=== PATIENT | female | born 1935 | race Caucasian/White ===

== ENCOUNTER 2017-10-04 17:33 | Inpatient (IN) | payer MEDICARE ==
[2017-10-04] MEDS ORDERED: Cefepime 2 GM/10 ML SYR ONE (18:20)
[2017-10-04 19:13] LABS: Bilirubin Negative (Negative); Blood, Urine Negative (Negative); Glucose, Urine (Dipstick) Negative (Negative); Ketone, Urine Negative (Negative); Nitrite Negative (Negative); Protein, Urine (Dipstick) Negative (Neg-Trace); Urobilinogen 0.2 mg/dL (0.2-1.0)
[2017-10-04] MEDS ORDERED: Vancomycin HCl 750 MG in Sodium Chloride 0.9% 250 ML 250 ML IVPB SCH (19:30)
[2017-10-04] MEDS ORDERED: Acetaminophen 325 MG TAB PO PRN ×2 (21:48→22:09)
[2017-10-04] MEDS ORDERED: Ondansetron HCl/PF 4 MG/2 ML Vial IVP PRN (21:48)
[2017-10-04] MEDS ORDERED: Ondansetron ODT 4 MG TAB SL PRN (21:48)
[2017-10-04] MEDS ORDERED: Nitroglycerin 0.4 MG TAB (25 Tab Bottle) PO PRN (22:09)
[2017-10-04] MEDS ORDERED: Ondansetron ODT 4 MG TAB PO PRN (22:09)
[2017-10-04] MEDS ORDERED: Calcium Carbonate 500 MG ChewTAB PO PRN (22:09)
[2017-10-04] MEDS ORDERED: Mag-Al 1200 mg/1200 mg/30 ML UDCUP PO PRN (22:09)
[2017-10-04] MEDS ORDERED: Cefepime 2 GM in Sodium Chloride 0.9% 100 ML IVPB SCH (22:15)
--- NOTE | 2017-10-04 22:54 | HP ---
DATE OF ADMISSION: 10/04/2017 PRIMARY CARE PHYSICIAN: Dr. Karena Hanna. PRIMARY ONCOLOGIST: Emory Campos M.D. CHIEF COMPLAINT: Fever. HISTORY OF PRESENT ILLNESS: The patient is an 81-year-old female with ovarian cancer on chemotherapy , who presented to [facility] with fever. Over the last 24 hours, the patient developed fever along with chills. Her maximum temperature was 1 02 to 102.9. She also has on and off diarrhea over the last 2 weeks that has somewhat slowed down. Last episode of diarrhea was this afternoon. Her last chemotherapy was earlier this week. She denie s any sick contacts. No cough, shortness of breath, wheezing, skin rash reported. She also had abdo alfredo discomfort that was more or less generalized crampy. She felt generally weak and fatigued. In the emergency room, her initial vital signs showed temperature 102, respiration of 18, pulse rate of 105, blood pressure 99/54 with O2 saturation 98% on room air. Her workup in the emergency room wa s consistent with WBC of 0.3 with 10% neutrophil without any bandemia. She received IV fluids along with ibuprofen and was transferred to this facility. Per ER record, there was questionable atrial fi brillation. I am unable to find any EKG in the chart. At this facility, she received vancomycin and cefepime. PAST MEDICAL HISTORY: 1. Ovarian cancer diagnosed in 2013. 2. Hypertension. 3. Gastroesophageal reflux disease. 4. Hyperlipidemia. 5. Hypothyroidism. PAST SURGICAL HISTORY: Hysterectomy and bilateral oophorectomy. ALLERGIES: The patient is allergic to LATEX. CURRENT HOME MEDICATIONS: The patient is unable to recall any of her home medications. Family to br ing accurate list of medications. SOCIAL HISTORY: The patient currently lives at home. No smoking, alcohol or drug use. FAMILY HISTORY: Negative for premature coronary artery disease. CODE STATUS: FULL CODE. Surrogate decision maker is her . PHYSICAL EXAMINATION: VITAL SIGNS: As discussed above. GENERAL: An 81-year-old female with chills. Feels generally weak and fatigued. HEENT: Head atraumatic, normocephalic. Sclerae anicteric. Moist mucous membrane, no oral lesion. NECK: Supple, no JVD appreciated. No carotid bruit. LUNGS: Clear to auscultation bilaterally. HEART: S1, S2 present. Regular rate and rhythm. No murmurs, rubs or gallops appreciated. ABDOMEN: Soft, mild generalized tenderness. No rebound, guarding, no costovertebral angle tendernes s. EXTREMITIES: No edema or calf tenderness. NEUROLOGIC: Grossly nonfocal, moves all four extremities. PSYCHIATRY: Alert, awake, oriented x3. SKIN: Warm and dry. LYMPH NODES: No palpable lymph nodes in the neck. PERIPHERAL VASCULAR: Radial pulses palpable bilaterally. MUSCULOSKELETAL: No joint swelling or tenderness. LABORATORY DATA AND X-RAY FINDINGS: As discussed above. Platelet was 324 with H and H of 8.8 and 25 .7. Chemistries showed sodium 130, potassium 3.2, chloride 93, bicarbonate 21, BUN 29, creatinine 1. 21. Urinalysis was negative for wbc, bacteria. Blood cultures have been sent from the emergency raghav . There was no chest x-ray or EKG done in the emergency room. IMPRESSION: 1. Neutropenic fever. 2. Neutropenia secondary to chemotherapy. 3. Nausea, vomiting, diarrhea, rule out infectious etiology. 4. Hypertension. 5. Hypokalemia. 6. Dehydration. 7. Anemia, probably chronic. 8. Hyponatremia. 9. Chronic kidney disease stage 3. 10. Mild protein calorie malnutrition. The patient will be monitored on the medical floor. We will continue empiric antibiotics. Add Flagy l. She received one dose of vancomycin. We will hold further vancomycin dosing for now. We will co nfirm other home medications. We will also add stool workup. Resume home medications once confirmed . We will consult Oncology Service. Plan of care was discussed with the patient in detail, she stated understanding.
[2017-10-04] MEDS: NS 0.9% w/ 20 MEQ KCL 1,000 ML/1,000 ML BAG IV SCH (23:32)
[2017-10-04] MEDS: metroNIDAZOLE 500 MG in Premix Bag 1 BAG IVPB SCH (23:32)
[2017-10-05] MEDS ORDERED: Cefepime 2 GM, Syringe 2.5 ML in Sterile Water 10 ML SLOW IVP SCH (02:00)
[2017-10-05] MEDS ORDERED: Metoprolol Tartrate 5 MG/5 ML VIAL IVP PRN (02:22)
[2017-10-05] MEDS ORDERED: Digoxin 0.5 MG/2 ML AMP SLOW IVP SCH ×2 (02:30→23:48)
[2017-10-05 06:02] LABS: Anion Gap 13 mmol/L (10-20); BUN (Urea Nitrogen) 23 mg/dL (9.8-20.1); Calc. Creatinine Clearance 33 mL/min (70-130); Calcium 8.1 mg/dL (7.8-10.44); Carbon Dioxide 21 mmol/L (23-31); Chloride 102 mmol/L (98-107); Estimated GFR-MDRD 50; Phosphorus 3.3 mg/dL (2.3-4.7)
[2017-10-05 06:07] LABS: White Blood Cell (WBC) Count 0.6 thou/uL (4.8-10.8)
[2017-10-05 07:17] LABS: Hematocrit 23.6 % (36.0-47.0); Mean Platelet Volume 6.8 fL (7.4-10.4); Red Blood Cell (RBC) Count 2.72 mill/uL (4.20-5.40)
[2017-10-05 07:54] LABS: Band 24 % (5-11); Bite Cells SLIGHT = 2-5 cells (100X) (0-1/hpf); Neutrophil 24 % (42-75); Polychromasia SLIGHT = 2-3 cells (100X) (0-2/hpf); Reactive Lymphocytes 8 % (0-10)
[2017-10-05] MEDS: metroNIDAZOLE 500 MG in Premix Bag 1 BAG IVPB SCH ×2 (08:56→16:33)
[2017-10-05] MEDS: NS 0.9% w/ 20 MEQ KCL 1,000 ML/1,000 ML BAG IV SCH ×3 (08:56→20:33)
[2017-10-05] MEDS: Famotidine 20 MG TAB PO SCH ×2 (08:56→22:18)
[2017-10-05] MEDS ORDERED: Magnesium Sulfate 4 GM in Sodium Chloride 0.9% 250 ML 250 ML IVPB SCH (09:00)
[2017-10-05] MEDS ORDERED: Potassium Chloride 20 MEQ TAB PO SCH ×2 (09:00→17:00)
--- NOTE | 2017-10-05 09:04 | RAD ---
AP VIEW OF CHEST: Date: 10/05/17 INDICATION: Neutropenic fever. FINDINGS: There is a left-sided pleural parenchymal opacity suspicious for left-sided pleural effusion with eit her atelectasis or pneumonia. The right lung is clear. There is mild cardiomegaly that is stable to c omparison from 07/12/05. No acute osseous abnormality is evident. IMPRESSION: Left-sided pleural parenchymal opacity possibly reflecting pleural effusion with atelectasis and/or p neumonia. A 2 view chest radiograph may be helpful for additional evaluation. POS: [facility]
[2017-10-05] MEDS ORDERED: Diphenoxylate HCl/Atropine Tablet PO PRN (10:35)
[2017-10-05] MEDS ORDERED: Loperamide HCl 2 MG CAP PO PRN (10:35)
[2017-10-05] MEDS: Cefepime 2 GM, Syringe 2.5 ML in Sterile Water 10 ML SLOW IVP SCH ×2 (10:53→20:33)
[2017-10-05] MEDS ORDERED: Aspirin 81 mg Enteric Coated Tablet PO SCH (11:00)
--- NOTE | 2017-10-05 11:16 | CON ---
DATE OF CONSULTATION: 10/05/2017 REASON FOR CONSULTATION: Ovarian cancer. HISTORY OF PRESENT ILLNESS: Ms. Sher is a pleasant 81-year-old female who was diagnosed with ovaria n cancer in 10/2013. She had received chemotherapy and maximum cytoreductive surgery and has been wa tched over the last few years. In 07/2017, CT scan showed progression. She was started on carboplat in and Taxol and received her second dose of carboplatin on 09/24. She then received Taxol on Monday 10/01. She has been struggling with diarrhea since initiation of chemotherapy. She has been taking Imodium p.r.n. Yesterday, she called to say she was feeling weak. She continued to have diarrhea a nd possible fever. She was instructed to go to the emergency room for evaluation. A CBC performed s howed a white count of 300. Her creatinine was elevated at 1.21. She was admitted for neutropenic f ever and dehydration. Her temperature was 102 in the ER. She was started on cefepime and received a dose of vancomycin and transferred to this facility for further treatment. PAST MEDICAL HISTORY: 1. Metastatic ovarian cancer. 2. Hypertension. 3. High cholesterol. 4. Esophageal reflux. 5. Hemorrhoids. PAST SURGICAL HISTORY: 1. Hysterectomy. 2. Unilateral salpingo-oophorectomy. ALLERGIES: No known drug allergies. HOME MEDICATIONS: 1. Amlodipine 10 mg daily. 2. Aspirin 81 mg daily. 3. Atorvastatin 80 mg daily. 4. Levothyroxine 88 mcg daily. 5. Lexapro 10 mg daily. 6. Prilosec 20 mg daily. 7. Triamterene and hydrochlorothiazide daily. 8. Imodium p.r.n. 9. Zofran p.r.n. 10. Compazine p.r.n. FAMILY HISTORY: No family history of ovarian or breast cancer. SOCIAL HISTORY: , has no children, lives with her spouse. No alcohol, tobacco or illicit bright g use. REVIEW OF SYSTEMS: Constitutional: Positive for fever. No chills, night sweats or weight loss. Ey es: No blurred or double vision. ENT: No pain, hoarseness, sore throat or dysphagia. Cardiovascul ar: No chest pain, palpitations or syncope. Respiratory: No shortness of breath, dyspnea on exerti on or orthopnea. Gastrointestinal: No nausea or vomiting. Positive for diarrhea. Genitourinary: No dysuria or hematuria. Musculoskeletal: No joint or back pain. Skin: No rash or pruritus. Reji tologic: No bleeding, bruising or clotting. Neurologic: Positive for weakness. No headache, numbn ess, tingling or seizure activity. Psychiatric: No anxiety or depression. PHYSICAL EXAMINATION: VITAL SIGNS: Temperature is 99.2, pulse is 86, respiratory rate 18 and BP is 120/58. She is 98% on 2 liters. GENERAL: A well-developed, well-nourished female in no acute distress. HEENT: Normocephalic and atraumatic. Pupils are equal and reactive to light. NECK: Supple. CARDIOVASCULAR: Regular rate and rhythm. Positive for murmur. LUNGS: Clear. ABDOMEN: Soft and nontender. Bowel sounds are positive. EXTREMITIES: No clubbing, cyanosis or edema. SKIN: No rash. HEMATOLOGIC: No petechia or purpura. NEUROLOGICAL: Nonfocal. She is alert, oriented and appropriate. PERTINENT LABORATORY AND X-RAYS: Current WBCs are 600, hemoglobin 7.7, hematocrit 23.6 and platelet count is 279,000. She got 24% neutrophils, 24% bands and 40% lymphocytes. Sodium is 133, potassium 3.4, chloride 102, CO2 is 21, BUN is 23 and creatinine is 1.05. Lactic acid is 2, calcium 8.1, phosp horus 3.3, magnesium 1, total bilirubin is 0.6, AST 31, ALT is 12, alkaline phosphatase is 39, serum total protein 7.1, albumin 2.9, globulin 4 and lipase 21. Blood cultures are negative. Stool cultur e was negative for C. diff or any ova parasite. Positive for elevated lactoferrin. Chest x-ray show ed left-sided pleural obesity and a possible pneumonia. ASSESSMENT: 1. Metastatic ovarian cancer, status post chemotherapy with carboplatin and Taxol. 2. Neutropenic fever. 3. Diarrhea. DISCUSSION: The patient is receiving IV fluids and antibiotics. Her creatinine has improved overnig ht. Her CBC shows an increase in bands and neutrophils. She is likely recovering from her chemother apy. She continues to have diarrhea. Her stool is negative, so I will add Imodium and Lomotil. Thi s is probably from chemotherapy. We will provide supportive care. I think she will improve over the next 24 hours and hopefully be discharged home. Thank you for the consult.
--- NOTE | 2017-10-05 12:28 | EKG ---
Test Reason : Blood Pressure : / mmHG Vent. Rate : 137 BPM Atrial Rate : 119 BPM P-R Int : 000 ms QRS Dur : 112 ms QT Int : 332 ms P-R-T Axes : 000 060 197 degrees QTc Int : 501 ms Atrial fibrillation with rapid ventricular response with premature ventricular or aberrantly conducte d complexes Low voltage QRS Cannot rule out Anteroseptal infarct (cited on or before 12-JUL-2005) Marked ST abnormality, possible inferior subendocardial injury Abnormal ECG When compared with ECG of 12-JUL-2005 10:23, Significant changes have occurred Confirmed by IVAN BELTRAN ([id number]) on 10/05/2017 12:28:40 PM Referred By: MENDEZ Confirmed By:IVAN BELTRAN
--- NOTE | 2017-10-05 13:48 | CON ---
DATE OF SERVICE: 10/05/2017 REASON FOR CONSULTATION: Atrial fibrillation with RVR. HISTORY OF PRESENT ILLNESS: Mrs. Sher is a very pleasant 81-year-old white female who comes to the hospital for fever. She has ovarian cancer and is on chemotherapy for this. She was having fevers of about 102.9, diarrhea for 2 weeks before that and she was admitted. She was found to be neutropenic. She is on IV antibiotics now. During her hospital stay, she was on telemetry, her potassium was about 3.2 and she developed atrial fibrillation. Her potassium was replaced readily and given some doses of IV digoxin and she currently is back in sinus rhythm. She denies any chest pain, tightness, or pressure. No palpitations, no syncope or presyncope. PAST MEDICAL HISTORY: 1. Ovarian cancer diagnosed in 2013. 2. Hypertension. 3. GERD. 4. Hyperlipidemia. 5. Hypothyroidism. PAST SURGICAL HISTORY: 1. Hysterectomy. 2. Bilateral oophorectomy. OUTPATIENT MEDICATIONS: 1. Vitamin D3. 2. Co-Q10. 3. Omeprazole 20 mg a day. 4. Aspirin 81 a day. 5. Levothyroxine 88 mcg a day. 6. Atorvastatin 80 mg a day. 7. Amlodipine 10 mg a day. ALLERGIES: No known drug allergies. SOCIAL HISTORY: No alcohol, tobacco or drugs. FAMILY HISTORY: Noncontributory. REVIEW OF SYSTEMS: A 12-point review of systems was done and is all negative unless stated in the history of present illness. PHYSICAL EXAMINATION: VITAL SIGNS: Temperature 98.8, pulse 81, respiratory rate 18, satting 97% on 2 liters, blood pressure 125/58. GENERAL: Awake, alert, oriented x3, in no distress. HEENT: Normocephalic, atraumatic. NECK: Supple. LUNGS: Clear. CARDIOVASCULAR: S1, S2, no S3, S4, loud grade 3/6 systolic murmur at the left sternal border, no rubs or gallops. ABDOMEN: Soft, positive bowel sounds. EXTREMITIES: No edema. SKIN: Warm and dry. LABORATORY WORK: Reviewed. Severely neutropenic, white count 0.3 on admission , 0.6 this morning with 24% neutrophils, 24% bands, 40% lymphocytes. Chemistry : Potassium was low on admission at 3.4 and 3.2. It was replaced and now is 3.4 at the latest check. UA was unremarkable. Telemetry was reviewed, episodes of atrial fibrillation. ASSESSMENT AND PLAN: 1. Atrial fibrillation with rapid ventricular response. This is in the setting of diarrhea from neutropenia and hypokalemia. Replace potassium. I agree with keeping her on low dose calcium channel emmanuelle as her blood pressure will allow this. 2. We would consider anticoagulation at this time as she is high risk for thrombus with her malignancy. At this time, she is thrombocytopenic and anemic. Her hemoglobin is 7.7, so we will hold on any anticoagulation. We will discuss with Hematology/Oncology and decide what the best way around this. At this time, aspirin alone for stroke prophylaxis as her platelet count is normal. Thank you for letting us participate in the care of your patient. We will follow. ARNOLDO
--- NOTE | 2017-10-05 14:50 | PDOC.PN ---
- Subjective Encounter Start Date: 10/05/17 Encounter Start Time: 11:00 Patient seen and examined. Diarrhea +. No overnight events - Objective Resuscitation Status: Resuscitation Status FULL:Full Resuscitation MAR Reviewed: Yes Vital Signs & Weight: Vital Signs (12 hours) Temp Pulse Resp BP Pulse Ox 10/05/17 11:30 98.8 F 81 18 125/58 L 97 10/05/17 08:00 99.2 F 86 18 120/58 L 98 10/05/17 04:00 99.0 F 90 16 111/55 L 97 10/05/17 03:00 128 H 102/52 L 10/05/17 02:43 98 F 133 H 20 98 10/05/17 02:30 128 H 105/56 L Weight Admit Weight 108 lb 14.4 oz Weight 108 lb 14.4 oz I&O: 10/04/17 10/05/17 10/06/17 06:59 06:59 06:59 Intake Total 120 Balance 120 Result Diagrams: 10/05/17 04:49 10/05/17 04:49 EKG Reviewed by me: Yes (Tele SR, EKG - Afib with RVR earlier) Phys Exam - Physical Examination Constitutional: NAD Respiratory: no wheezing, no rhonchi Cardiovascular: RRR, no significant murmur, no rub no heaves/pulsations Gastrointestinal: soft, no distention, positive bowel sounds mild gen tenderness Musculoskeletal: no edema, pulses present Neurological: non-focal, normal sensation, moves all 4 limbs Psychiatric: normal affect, A&O x 3 Dx/Plan - Plan DVT proph w/SCDs IMPRESSION: 1. Neutropenic fever. 2. Neutropenia secondary to chemotherapy. 3. Nausea, vomiting, diarrhea - Stool w/u negative so far 4. Hypertension. 5. Hypokalemia/Hypomagnessemia 6. Afib with RVR - now in SR 7. Anemia, probably chronic. 8. Hyponatremia. 9. BAKARI/Chronic kidney disease stage 2/Dehydration.- improving 10. Mild protein calorie malnutrition. PLAN: * Cont Atbx * Cardiology/Oncology following * AM labs * Cont to monitor * Neutropenic precautions Review of Systems - Review of Systems Constitutional: negative: Fever, Chills, Sweats, Weakness, Malaise Respiratory: negative: Cough, Dry, Shortness of Breath, Hemoptysis, SOB with Excertion, Pleuritic Pain, Sputum, Wheezing Cardiovascular: negative: Chest Pain, Palpitations, Orthopnea, Paroxysmal Noc. Dyspnea, Edema, Light Headedness - Medications/Allergies Allergies/Adverse Reactions: Allergies Allergy/AdvReac Type Severity Reaction Status Date / Time No Known Allergies Allergy Verified 10/05/17 01:01 Medications: Current Medications Acetaminophen (Tylenol) 650 mg PO Q4H PRN PRN Reason: Headache/Fever or Pain Al Hydroxide/Mg Hydroxide (Maalox) 30 ml PO Q6H PRN PRN Reason: Heartburn or Indigestion Aspirin (Ecotrin) 81 mg PO DAILY [facility] Calcium Carbonate (Tums) 1,000 mg PO Q4H PRN PRN Reason: Heartburn or Indigestion Diltiazem HCl (Cardizem) 30 mg PO Q6HR PRN PRN Reason: HR >120 sustained Diphenoxylate HCl/Atropine (Lomotil) 1 tab PO Q6H PRN PRN Reason: Diarrhea/Loose Stools Famotidine (Pepcid) 20 mg PO BID [facility] Last Admin: 10/05/17 08:56 Dose: 20 mg Metronidazole 500 mg/ Device 100 mls @ 100 mls/hr IVPB 0800,1600,2359 [facility] Last Admin: 10/05/17 08:56 Dose: 100 mls Potassium Chloride/Sodium Chloride (Ns 0.9% W/ 20 Meq Kcl) 1,000 ml in 1,000 mls @ 125 mls/hr IV .Q8H [facility] Last Admin: 10/05/17 08:56 Dose: 1,000 mls Cefepime HCl 2 gm/ Syringe 2.5 (ml/ Sterile Water) 12.5 mls @ 150 mls/hr SLOW IVP 0800,2000 [facility] Last Admin: 10/05/17 10:53 Dose: 12.5 mls Loperamide HCl (Imodium) 2 mg PO PRN PRN PRN Reason: Diarrhea/Loose Stools Last Admin: 10/05/17 11:27 Dose: 2 mg Metoprolol Tartrate (Lopressor) 5 mg IVP Q6H PRN PRN Reason: hr>120 and if SBP>100 Nitroglycerin (Nitrostat) 0.4 mg PO Q5MIN PRN PRN Reason: Chest Pain Ondansetron HCl (Zofran Odt) 4 mg PO Q6H PRN PRN Reason: Nausea/Vomiting Ondansetron HCl (Zofran) 4 mg IVP Q6H PRN PRN Reason: Nausea/Vomiting Potassium Chloride (K-Dur) 20 meq PO BID-[facility] Stop: 10/05/17 17:01
[2017-10-05] MEDS: Ondansetron HCl/PF 4 MG/2 ML Vial IVP PRN (18:15)
[2017-10-05] MEDS ORDERED: Furosemide 40 MG/4 ML VIAL SLOW IVP SCH (23:45)
[2017-10-06] MEDS: metroNIDAZOLE 500 MG in Premix Bag 1 BAG IVPB SCH ×4 (00:51→23:42)
[2017-10-06] MEDS: Sodium Chloride 0.9% 1,000 ML IV SCH ×2 (01:27→23:43)
[2017-10-06 06:12] LABS: Anisocytosis SLIGHT = 6-15 cells (100X) (0-5/hpf); Band 17 % (5-11); Hematocrit 23.1 % (36.0-47.0); Hypochromia SLIGHT = 6-15 cells (100X) (0-5/hpf); Mean Platelet Volume 6.6 fL (7.4-10.4); Microcytosis SLIGHT = 6-15 cells (100X) (0-5/hpf); Neutrophil 38 % (42-75); Red Blood Cell (RBC) Count 2.64 mill/uL (4.20-5.40); White Blood Cell (WBC) Count 1.3 thou/uL (4.8-10.8)
[2017-10-06 06:58] LABS: Anion Gap 13 mmol/L (10-20); BUN (Urea Nitrogen) 24 mg/dL (9.8-20.1); BUN/Creatinine Ratio 22.64; Calc. Creatinine Clearance 34 mL/min (70-130); Calcium 8.3 mg/dL (7.8-10.44); Carbon Dioxide 20 mmol/L (23-31); Chloride 103 mmol/L (98-107); Estimated GFR-MDRD 50; Magnesium 2.2 mg/dL (1.6-2.6); Phosphorus 2.4 mg/dL (2.3-4.7)
[2017-10-06] MEDS: Aspirin 81 mg Enteric Coated Tablet PO SCH (09:37)
[2017-10-06] MEDS: Famotidine 20 MG TAB PO SCH ×2 (09:37→21:22)
[2017-10-06] MEDS: Cefepime 2 GM, Syringe 2.5 ML in Sterile Water 10 ML SLOW IVP SCH ×2 (09:42→21:22)
--- NOTE | 2017-10-06 12:37 | PDOC.CTH ---
Cardiology Progress Note - Subjective No new issues or concerns. She has had small runs of afib non sustained and asymptomatic and rate controlled. - Objective Vital Signs Temp Pulse Resp BP Pulse Ox 10/06/17 11:30 97.4 F L 73 16 116/56 L 94 L 10/06/17 08:00 98.9 F 69 17 105/54 L 96 10/06/17 05:00 96 10/06/17 04:46 96 10/06/17 04:18 98 F 83 18 115/57 L 96 Admit Weight 108 lb 14.4 oz Weight 111 lb 9.6 oz 10/05/17 10/06/17 10/07/17 06:59 06:59 06:59 Intake Total 3000 Output Total 2300 Balance 700 - Physical Examination General/Neuro: alert & oriented x3, NAD Neck: no JVD present Lungs: unlabored respirations Heart: RRR Abdomen: NT/ND Extremities: other: (no edema.) - Telemetry Telemetry Rhythm: NSR, Parox afib - Labs Result Diagrams: 10/06/17 04:30 10/06/17 04:30 - Assessment/Plan 1. Paroxysmal afib 2. Neutropenia 3. Neutropenic fever. 4. Anemia 5. Ovarian cancer. PLAN: - Will switch her IV drip to oral diltiazem. - Will hold off on any antiplatelet or anticoagulation until anemia improve. She will be a candidate for full anticoagulation once Hgb better.
--- NOTE | 2017-10-06 14:10 | PRG ---
DATE OF SERVICE: 10/06/2017 SUBJECTIVE: The patient is seen and examined at bedside. She complains about a continuous diarrhea. She does not want to really get up and do any physical therapy, because she feels weak and she is h aving diarrhea and she is connected to IV. OBJECTIVE: VITAL SIGNS: Blood pressure is 116/56, pulse is 73, temperature is 97.4, respiratory rate is 16, and O2 saturation is 94% on 3 liters by nasal cannula. HEENT: Her head is atraumatic, normocephalic. She looks quite emaciated. Oral mucosa is somewhat d ry. NECK: Supple. LUNGS: Clear. HEART: S1, S2 normal. There is a systolic murmur approximately 3/6 mostly audible at the left red al border. ABDOMEN: Soft, nontender, bowel sounds are present, no organomegaly. EXTREMITIES: No clubbing, cyanosis or edema. NEUROLOGIC: Within normal limits. She is alert and oriented x4. There is not any motor deficits. Cranial nerves are intact. LABORATORY DATA: Showed white count of 1.3, hemoglobin 7.8, hematocrit 23.1, platelet count is 262. Sodium of 132, potassium 3.9, chloride 103, CO2 20, BUN is 24, creatinine 1.06, glucose 118, albumin 2.4. Microbiology showed some salmonella in her stool. Otherwise, the rest testing on her stool is negative. Blood cultures x2 negative. IMPRESSION: 1. Neutropenic fever. 2. Nausea, vomiting, diarrhea with positive stool cultures for salmonella. The patient is on cefepi me and metronidazole. 3. Hypertension. 4. Hypokalemia and hypomagnesemia. 5. Atrial fibrillation with rapid ventricular response. 6. Fluid overload. The patient was started on Lasix. Her atrial fibrillation is rate controlled no w. The patient was seen by Dr. Cui who wants to switch her from Cardizem drip to oral Cardizem. 7. Acute kidney injury/chronic kidney disease stage 2, improved. Plan is to continue her cefepime. Her white count is gradually going up, which is a good sign. She is still going to be on isolation for neutropenia. We will continue PT and encouraged her to get up and participate. Otherwise, she w ould become very weak and deconditioned. 8. Ovarian cancer, status post chemotherapy. 9. Anemia. Hemoglobin seems to be stable at around 7.8. We will obtain chest x-ray to follow up on the left lung opacity of unclear etiology.
--- NOTE | 2017-10-06 15:47 | RAD ---
FRONTAL VIEW CHEST: Date: 10/06/17 COMPARISON: 10/05/17. INDICATION: Neutropenic fever. FINDINGS: Redemonstration of pleural and parenchymal opacity at the mid to inferior left hemithorax. The lungs are hyperinflated. Interstitial prominence is present bilaterally. Cardiac silhouette is grossly stab le. IMPRESSION: Moderate left effusion with adjacent atelectasis and/or pneumonia. Continued follow-up to complete re solution is recommended as the possibility of underlying neoplasm could not be excluded. CODE T. POS: [facility]
[2017-10-07] MEDS: Ondansetron HCl/PF 4 MG/2 ML Vial IVP PRN ×2 (02:52→19:52)
[2017-10-07] MEDS: Levothyroxine Sodium 88 MCG TAB PO SCH (05:06)
[2017-10-07 05:34] LABS: Anion Gap 13 mmol/L (10-20); BUN (Urea Nitrogen) 25 mg/dL (9.8-20.1); BUN/Creatinine Ratio 26.04; Calc. Creatinine Clearance 37 mL/min (70-130); Calcium 8.7 mg/dL (7.8-10.44); Carbon Dioxide 21 mmol/L (23-31); Chloride 104 mmol/L (98-107); Estimated GFR-MDRD 56; Phosphorus 2.8 mg/dL (2.3-4.7)
[2017-10-07 06:50] LABS: Band 21 % (5-11); Hematocrit 21.1 % (36.0-47.0); Mean Platelet Volume 6.5 fL (7.4-10.4); Myelocyte 2 % (0-0); Neutrophil 47 % (42-75); Red Blood Cell (RBC) Count 2.38 mill/uL (4.20-5.40); White Blood Cell (WBC) Count 1.9 thou/uL (4.8-10.8)
[2017-10-07] MEDS: Aspirin 81 mg Enteric Coated Tablet PO SCH (09:06)
[2017-10-07] MEDS: metroNIDAZOLE 500 MG in Premix Bag 1 BAG IVPB SCH ×3 (09:06→23:02)
[2017-10-07] MEDS: Famotidine 20 MG TAB PO SCH ×2 (09:07→19:41)
[2017-10-07] MEDS: Potassium Chloride 20 MEQ TAB PO SCH ×3 (09:07→19:40)
[2017-10-07] MEDS: Cefepime 2 GM, Syringe 2.5 ML in Sterile Water 10 ML SLOW IVP SCH ×2 (09:11→19:46)
--- NOTE | 2017-10-07 13:32 | PRG ---
DATE OF SERVICE: 10/07/2017 SUBJECTIVE: The patient is seen and examined at the bedside. She is still not eating and she is sti ll not participating in her physical therapy. She had 5 bowel movements, early this morning and noth ing since then. She feels quite weak. OBJECTIVE: VITAL SIGNS: Blood pressure is 117/56, pulse is 65, temperature is 97.1, O2 saturation is 95% on 2 l iters and respiratory rate is 18. GENERAL: She looks elderly and emaciated. HEENT: Pupils are responding to light properly. Sclerae nonicteric. Conjunctivae pinkish. Oral mu cosa is moist. NECK: Supple, no lymphadenopathy. LUNGS: Significant, lack of breath sounds at the left base. No wheezing, no rales. CARDIOVASCULAR: S1, S2 normal. ABDOMEN: Soft, nontender. Bowel sounds are present, no organomegaly. EXTREMITIES: No clubbing, cyanosis or edema. NEUROLOGIC: She is alert and oriented x4. There is any motor or sensory deficits. Cranial nerves a re intact. LABORATORY DATA: Showed white count up to 1.9, hemoglobin 7.0, hematocrit 21.1, platelet count is 27 2,000. Chemistry shows sodium of 135, potassium 3.0, chloride 104, CO2 21, BUN 25, albumin 2.3 and t he rest of chemistry within normal limits. Chest x-ray was done and it showed left pleural effusion with most likely a left lower lobe pneumonia. IMPRESSION: 1. Neutropenic fever, resolved. 2. Left lower lobe infiltrate and pleural effusion suspicious for pneumonia, hospital acquired, so w e are going to start her on vancomycin and we will continue her cefepime and metronidazole. 3. Hypokalemia for replacement. 4. Hypertension controlled. 5. Atrial fibrillation with rapid ventricular response. She was switched to oral Cardizem, the rate is controlled. 6. Acute kidney injury on chronic kidney disease stage 2, improved. 7. Ovarian cancer, status post chemotherapy. 8. Anemia. Hemoglobin is down to 7.0. I am transfuse her with 1 unit of packed red blood cells.
--- NOTE | 2017-10-07 14:45 | PDOC.CTH ---
Cardiology Progress Note - Subjective She went back into rapid afib. She has no new issues. Continues to feel weak and c/o food not tasting like food anymore and not wanting to teat. - Objective Vital Signs Temp Pulse Resp BP Pulse Ox 10/07/17 12:15 97.1 F L 65 18 117/56 L 95 10/07/17 07:37 98.2 F 74 17 95 10/07/17 07:35 98.2 F 74 17 114/58 L 95 10/07/17 04:00 97.9 F 64 18 120/55 L 96 Admit Weight 108 lb 14.4 oz Weight 111 lb 11.2 oz 10/06/17 10/07/17 10/08/17 06:59 06:59 06:59 Intake Total 3000 1670 120 Output Total 2300 1000 Balance 700 670 120 - Physical Examination General/Neuro: alert & oriented x3, NAD Neck: no JVD present Lungs: unlabored respirations Heart: other: (Irreg) Abdomen: NT/ND Extremities: other: (no edema.) - Telemetry Telemetry Rhythm: Afib HR 110-130 - Labs Result Diagrams: 10/07/17 04:45 10/07/17 04:45 - Assessment/Plan 1. Paroxysmal afib 2. Neutropenia 3. Neutropenic fever. 4. Anemia 5. Ovarian cancer. 6. Hypokalemia PLAN: - Will place back on IV dilt. and replce K. - Will hold off on any antiplatelet or anticoagulation until anemia improve. She will be a candidate for full anticoagulation once Hgb better.
[2017-10-07] MEDS ORDERED: Amiodarone HCl 450 MG in Dextrose 5% in Water 250 ML IVPB SCH ×2 (15:00)
[2017-10-07] MEDS: Sodium Chloride 0.9% 1,000 ML IV SCH (17:43)
[2017-10-07] MEDS ORDERED: Vancomycin HCl 750 MG in Sodium Chloride 0.9% 250 ML 250 ML IVPB SCH (20:00)
[2017-10-07] MEDS ORDERED: Vancomycin HCl 1 GM in Premix Bag 1 BAG IVPB SCH (21:00)
[2017-10-07] MEDS ORDERED: Furosemide 20 MG/2 ML VIAL SLOW IVP SCH (22:45)
[2017-10-08] MEDS: Levothyroxine Sodium 88 MCG TAB PO SCH (06:00)
[2017-10-08 06:02] LABS: Band 26 % (5-11); Hematocrit 28.1 % (36.0-47.0); Mean Platelet Volume 6.4 fL (7.4-10.4); Myelocyte 6 % (0-0); Neutrophil 31 % (42-75); Nucleated RBC 3 % (0); Red Blood Cell (RBC) Count 3.24 mill/uL (4.20-5.40); Toxic Granulation SLIGHT
[2017-10-08] MEDS: Sodium Chloride 0.9% 1,000 ML IV SCH (06:02)
[2017-10-08 06:12] LABS: ALT (SGPT) 12 U/L (8-55); AST (SGOT) 27 U/L (5-34); Alkaline Phosphatase 33 U/L (40-150); Anion Gap 13 mmol/L (10-20); BUN (Urea Nitrogen) 27 mg/dL (9.8-20.1); Bilirubin, Total 0.3 mg/dL (0.2-1.2); Calc. Creatinine Clearance 35 mL/min (70-130); Calcium 9.1 mg/dL (7.8-10.44); Carbon Dioxide 19 mmol/L (23-31); Chloride 105 mmol/L (98-107); Estimated GFR-MDRD 51; Globulin 3.8 g/dL (2.4-3.5); Magnesium 1.8 mg/dL (1.6-2.6); Phosphorus 1.8 mg/dL (2.3-4.7); Protein, Total 6.4 g/dL (6.0-8.3)
[2017-10-08] MEDS: Amiodarone In Dextrose,Iso-Osm 200 ML IVPB SCH ×2 (07:09→12:40)
[2017-10-08] MEDS: Ondansetron HCl/PF 4 MG/2 ML Vial IVP PRN (08:59)
[2017-10-08] MEDS: Cefepime 2 GM, Syringe 2.5 ML in Sterile Water 10 ML SLOW IVP SCH (09:04)
[2017-10-08] MEDS: metroNIDAZOLE 500 MG in Premix Bag 1 BAG IVPB SCH (09:04)
[2017-10-08] MEDS: Saccharomyces boulardii 250 MG CAP PO SCH (09:04)
[2017-10-08] MEDS: Famotidine 20 MG TAB PO SCH ×2 (09:05→21:48)
[2017-10-08] MEDS: Aspirin 81 mg Enteric Coated Tablet PO SCH (09:05)
--- NOTE | 2017-10-08 14:16 | PDOC.PN ---
- Subjective Encounter Start Date: 10/08/17 Encounter Start Time: 11:05 -: old records requested/rev Pt seen and examined, chart reviewed in its entirety. This is my first visit with this patient Pt complains of abdominal fullness and weakness. no appetite, tries to drink boost or ensure twice daily. no f/c, no n/v/D/C, no BM in a few days. Up with PT, but unable to much more than stand with assistance. PT alexander requested. Discussed with Pt rehab, and she is agreeable. Case management saw after i did and pt interest in the [facility] Pt denies CP or SOB, no N/V, no chills or rigors 10 point ROS performed and neg for all systems except as above - Objective Resuscitation Status: Resuscitation Status FULL:Full Resuscitation MAR Reviewed: Yes Vital Signs & Weight: Vital Signs (12 hours) Temp Pulse Resp BP Pulse Ox 10/08/17 13:46 84 16 94 L 10/08/17 12:02 97.8 F 80 20 113/56 L 10/08/17 10:27 120 H 18 95 10/08/17 08:55 97.9 F 10/08/17 07:27 113 H 16 94 L 10/08/17 07:07 97.9 F 120 H 18 92 L 10/08/17 07:05 143 H 18 102/50 L 92 L 10/08/17 04:00 97.1 F L 87 20 118/56 L 94 L 10/08/17 02:18 78 16 98 Weight Admit Weight 108 lb 14.4 oz Weight 112 lb 5 oz I&O: 10/07/17 10/08/17 10/09/17 06:59 06:59 06:59 Intake Total 1670 2564.5 Output Total 1000 1600 Balance 670 964.5 Result Diagrams: 10/08/17 05:18 10/08/17 05:18 Radiology Reviewed by me: Yes EKG Reviewed by me: Yes Phys Exam - Physical Examination Constitutional: NAD chronically ill appearing, looks tired HEENT: PERRLA, moist MMs, sclera anicteric, oral pharynx no lesions Neck: no nodes, no JVD, supple, full ROM Respiratory: no wheezing, no rales, no rhonchi, clear to auscultation bilateral Cardiovascular: RRR, no significant murmur, no rub Gastrointestinal: soft, non-tender, positive bowel sounds full, not tympanitic Musculoskeletal: pulses present, edema present Neurological: non-focal, normal sensation, moves all 4 limbs Lymphatic: no nodes Psychiatric: normal affect, A&O x 3 Skin: no rash, normal turgor, cap refill <2 seconds Dx/Plan (1) Neutropenic fever Code(s): D70.9 - NEUTROPENIA, UNSPECIFIED; R50.81 - FEVER PRESENTING WITH CONDITIONS CLASSIFIED ELSEWHERE Status: Resolved (2) Chemotherapy induced neutropenia Code(s): D70.1 - AGRANULOCYTOSIS SECONDARY TO CANCER CHEMOTHERAPY; T45.1X5A - ADVERSE EFFECT OF ANTINEOPLASTIC AND IMMUNOSUP DRUGS, INIT Status: Resolved (3) Salmonella Code(s): A02.9 - SALMONELLA INFECTION, UNSPECIFIED Status: Acute Comment: transition to Cipro (4) Infectious diarrhea in adult patient Code(s): A09 - INFECTIOUS GASTROENTERITIS AND COLITIS, UNSPECIFIED Status: Acute Comment: Salmonella postive on stool. Strealine Rx (5) HTN (hypertension) Code(s): I10 - ESSENTIAL (PRIMARY) HYPERTENSION Status: Chronic Qualifiers: Hypertension type: essential hypertension Qualified Code(s): I10 - Essential (primary) hypertension (6) Hypokalemia Code(s): E87.6 - HYPOKALEMIA Status: Resolved (7) Hypomagnesemia Code(s): E83.42 - HYPOMAGNESEMIA Status: Resolved (8) Paroxysmal atrial fibrillation with rapid ventricular response Code(s): I48.0 - PAROXYSMAL ATRIAL FIBRILLATION Status: Chronic (9) Anemia of chronic disease Code(s): D63.8 - ANEMIA IN OTHER CHRONIC DISEASES CLASSIFIED ELSEWHERE Status : Chronic (10) BAKARI (acute kidney injury) Code(s): N17.9 - ACUTE KIDNEY FAILURE, UNSPECIFIED Status: Resolved (11) Moderate dehydration Code(s): E86.0 - DEHYDRATION Status: Resolved (12) Moderate protein-calorie malnutrition Code(s): E44.0 - MODERATE PROTEIN-CALORIE MALNUTRITION Status: Chronic - Plan cont current plan of care, continue antibiotics, PT/OT, social work manager, out of bed/ambulate * .
[2017-10-08] MEDS ORDERED: Furosemide 40 MG/4 ML VIAL SLOW IVP SCH (14:45)
--- NOTE | 2017-10-08 15:48 | PDOC.CTH ---
Cardiology Progress Note - Subjective She is much more SOB today. She feels her abdomen is pushing onto he lungs and she is unable to take deep breaths. - Objective Vital Signs Temp Pulse Resp BP Pulse Ox 10/08/17 13:46 84 16 94 L 10/08/17 12:02 97.8 F 80 20 113/56 L 10/08/17 10:27 120 H 18 95 10/08/17 08:55 97.9 F 10/08/17 07:27 113 H 16 94 L 10/08/17 07:07 97.9 F 120 H 18 92 L 10/08/17 07:05 143 H 18 102/50 L 92 L 10/08/17 04:00 97.1 F L 87 20 118/56 L 94 L Admit Weight 108 lb 14.4 oz Weight 112 lb 5 oz 10/07/17 10/08/17 10/09/17 06:59 06:59 06:59 Intake Total 1670 2564.5 Output Total 1000 1600 Balance 670 964.5 - Physical Examination General/Neuro: alert & oriented x3, other: (mod resp distress) Neck: no JVD present Lungs: CTA Heart: other: (Irreg) Abdomen: other: (Distended. ) Extremities: + edema B (no edema) - Telemetry Telemetry Rhythm: Afib - Labs Result Diagrams: 10/08/17 05:18 10/08/17 05:18 - Assessment/Plan 1. Paroxysmal afib 2. Neutropenia, resolved. 3. Neutropenic fever. 4. Anemia 5. Ovarian cancer. 6. Hypokalemia 7. Severe . 8. Acute decompensated heart failure, diastolic, likely from fluid resucitation and severe . PLAN: - Continue Amiodarone drip. - IV lasix today. - Stop IF fluids.
--- NOTE | 2017-10-08 16:28 | RAD ---
PORTABLE AP CHEST: Date: 10-08-17 History: Decreased oxygen saturation. Comparison: 10-05-17 FINDINGS: There is increased perihilar interstitial opacities with greater patchy parenchymal opacity in the le ft perihilar region. These findings may be related to increase in pulmonary edema although developing pneumonia in the left perihilar region is a possibility. There is a small left pleural effusion with atelectasis. Left pleural effusion is overall similar to the prior study given differences in positi oning. No pleural effusion is seen on the right. Cardiac silhouette is stable in size. No other inter sindy change. IMPRESSION: 1. Increasing perihilar interstitial opacities with greater parenchymal opacity in the left hilar reg ion. Findings may be related to asymmetric pulmonary edema; although, developing pneumonia in the lef t perihilar region and left midlung zone is a possibility. 2. Persistent left pleural effusion and atelectasis. POS: [facility]
[2017-10-08] MEDS: ALPRAZolam 0.5 MG TAB PO PRN (21:46)
[2017-10-09] MEDS ORDERED: Amiodarone HCl 450 MG, Admixture Fee 1 EACH in Dextrose 5% in Water 250 ML IVPB SCH ×3 (00:30)
[2017-10-09] MEDS: Levothyroxine Sodium 88 MCG TAB PO SCH (04:34)
[2017-10-09 06:35] LABS: Hematocrit 27.5 % (36.0-47.0); Mean Platelet Volume 6.3 fL (7.4-10.4); Red Blood Cell (RBC) Count 3.14 mill/uL (4.20-5.40); White Blood Cell (WBC) Count 16.1 thou/uL (4.8-10.8)
[2017-10-09 06:57] LABS: Anion Gap 13 mmol/L (10-20); BUN (Urea Nitrogen) 24 mg/dL (9.8-20.1); Calc. Creatinine Clearance 35 mL/min (70-130); Calcium 9.2 mg/dL (7.8-10.44); Carbon Dioxide 20 mmol/L (23-31); Chloride 100 mmol/L (98-107); Estimated GFR-MDRD 52; Phosphorus 2.4 mg/dL (2.3-4.7)
[2017-10-09 07:17] LABS: Band 40 % (5-11); Dohle Bodies SLIGHT; Metamyelocyte 9 % (0-0); Myelocyte 2 % (0-0); Neutrophil 27 % (42-75); Toxic Granulation MODERATE; Vacuoles SLIGHT
[2017-10-09] MEDS ORDERED: Magnesium Sulfate 4 GM in Sodium Chloride 0.9% 250 ML 250 ML IVPB SCH (08:00)
[2017-10-09] MEDS: Potassium Chloride 20 MEQ TAB PO SCH ×3 (08:26→15:42)
[2017-10-09] MEDS: Aspirin 81 mg Enteric Coated Tablet PO SCH (08:26)
[2017-10-09] MEDS: Saccharomyces boulardii 250 MG CAP PO SCH (08:26)
[2017-10-09] MEDS: Famotidine 20 MG TAB PO SCH ×2 (08:26→22:00)
--- NOTE | 2017-10-09 12:58 | PDOC.PN ---
- Subjective Encounter Start Date: 10/09/17 Encounter Start Time: 11:35 Pt feels SOb, belly still feels tight, no pain. no N/V, decreased appetite persists. no CP, no D/C, no bleeding. Started on amio gtt overnight of PAF/ flutter. tolerating OK. Pt awaiting Pt/OT eval. plans to go to rehab on discharge No further fever, chills or rigors. no diarrhea 10 point rOs performed and neg for all systems except as above - Objective Resuscitation Status: Resuscitation Status FULL:Full Resuscitation MAR Reviewed: Yes Vital Signs & Weight: Vital Signs (12 hours) Temp Pulse Resp BP Pulse Ox 10/09/17 11:15 97.5 F L 126 H 20 119/65 92 L 10/09/17 10:05 111 H 20 95 10/09/17 08:21 97.3 F L 109 H 20 111/74 98 10/09/17 06:28 95 10/09/17 04:00 97.5 F L 112 H 20 145/64 H 96 10/09/17 01:53 94 L Weight Admit Weight 108 lb 14.4 oz Weight 110 lb I&O: 10/08/17 10/09/17 10/10/17 06:59 06:59 06:59 Intake Total 2564.5 980 Output Total 1600 1750 Balance 964.5 -770 Result Diagrams: 10/09/17 05:54 10/09/17 05:54 Radiology Reviewed by me: Yes EKG Reviewed by me: Yes Phys Exam - Physical Examination Constitutional: NAD chronically-ill appearing HEENT: PERRLA, moist MMs, sclera anicteric, oral pharynx no lesions Neck: no nodes, no JVD, supple, full ROM Respiratory: no wheezing, no rales, no rhonchi, clear to auscultation bilateral Cardiovascular: RRR, no significant murmur, no rub Gastrointestinal: non-tender, positive bowel sounds tenses and distended, tympanitic with shifting dullness Musculoskeletal: no edema, pulses present Neurological: non-focal, normal sensation, moves all 4 limbs Lymphatic: no nodes Psychiatric: normal affect, A&O x 3 Skin: no rash, normal turgor, cap refill <2 seconds Dx/Plan (1) Neutropenic fever Code(s): D70.9 - NEUTROPENIA, UNSPECIFIED; R50.81 - FEVER PRESENTING WITH CONDITIONS CLASSIFIED ELSEWHERE Status: Resolved Comment: Up to 16k today (2) Chemotherapy induced neutropenia Code(s): D70.1 - AGRANULOCYTOSIS SECONDARY TO CANCER CHEMOTHERAPY; T45.1X5A - ADVERSE EFFECT OF ANTINEOPLASTIC AND IMMUNOSUP DRUGS, INIT Status: Resolved (3) Salmonella Code(s): A02.9 - SALMONELLA INFECTION, UNSPECIFIED Status: Acute Comment: transition to Cipro (4) Infectious diarrhea in adult patient Code(s): A09 - INFECTIOUS GASTROENTERITIS AND COLITIS, UNSPECIFIED Status: Acute Comment: Salmonella postive on stool. Strealine Rx (5) HTN (hypertension) Code(s): I10 - ESSENTIAL (PRIMARY) HYPERTENSION Status: Chronic Qualifiers: Hypertension type: essential hypertension Qualified Code(s): I10 - Essential (primary) hypertension (6) Hypokalemia Code(s): E87.6 - HYPOKALEMIA Status: Acute (7) Hypomagnesemia Code(s): E83.42 - HYPOMAGNESEMIA Status: Acute (8) Paroxysmal atrial fibrillation with rapid ventricular response Code(s): I48.0 - PAROXYSMAL ATRIAL FIBRILLATION Status: Chronic Comment: amio gtt. follow up on cardiology recommendations (9) Anemia of chronic disease Code(s): D63.8 - ANEMIA IN OTHER CHRONIC DISEASES CLASSIFIED ELSEWHERE Status : Chronic (10) BAKARI (acute kidney injury) Code(s): N17.9 - ACUTE KIDNEY FAILURE, UNSPECIFIED Status: Resolved (11) Moderate dehydration Code(s): E86.0 - DEHYDRATION Status: Resolved (12) Moderate protein-calorie malnutrition Code(s): E44.0 - MODERATE PROTEIN-CALORIE MALNUTRITION Status: Chronic - Plan cont current plan of care, continue antibiotics, PT/OT, social services assistant, out of bed/ambulate * .
[2017-10-09 14:12] LABS: PTT 38.3 SEC (22.9-36.1); Prothrombin Time 15.6 SEC (12.0-14.7)
[2017-10-09] MEDS: ALPRAZolam 0.5 MG TAB PO PRN (14:42)
--- NOTE | 2017-10-09 15:01 | ULT ---
LIMITED ABDOMINAL ULTRASOUND: Indication: Tense belly with shortness of breath. FINDINGS: There is only a mild amount of fluid present within the abdomen, predominately within the left upper quadrant. There are prominent effusions seen within the visualized aspects of the posterior costophre chris angles. Slightly larger appearing on the left. IMPRESSION: 1. Mild ascites. No large collections of fluid within the abdomen for therapeutic drainage. 2. The patient does have prominent bilateral effusions, left greater than right. POS: [facility]
[2017-10-09] MEDS ORDERED: Lorazepam 0.5 MG TAB PO PRN (15:02)
[2017-10-09] MEDS ORDERED: Furosemide 40 MG/4 ML VIAL SLOW IVP SCH (15:15)
[2017-10-09 15:51] LABS: Anion Gap 15 mmol/L (10-20); BUN (Urea Nitrogen) 23 mg/dL (9.8-20.1); Calc. Creatinine Clearance 35 mL/min (70-130); Calcium 9.5 mg/dL (7.8-10.44); Carbon Dioxide 21 mmol/L (23-31); Chloride 97 mmol/L (98-107); Estimated GFR-MDRD 53; Magnesium 2.5 mg/dL (1.6-2.6)
--- NOTE | 2017-10-09 17:53 | RAD ---
PORTABLE CHEST: 10/09/17 HISTORY: Shortness of breath. Pulmonary edema. COMPARISON: 10/08/17. FINDINGS/IMPRESSION: Mild cardiomegaly. Evidence of vascular congestion. Bilateral perihilar infiltrate is consistent with perihilar edema, although inflammatory infiltrates cannot be excluded. There are bilateral effusion, larger on the left with prominent left basilar atelectasis and/or consolidation. POS: [facility]
[2017-10-09] MEDS: Amiodarone In Dextrose,Iso-Osm 200 ML IVPB SCH (18:06)
--- NOTE | 2017-10-09 18:19 | PDOC.CTH ---
Cardiology Progress Note - Subjective Her breathing is better today. - Objective Vital Signs Temp Pulse Resp BP Pulse Ox 10/09/17 16:45 92 L 10/09/17 16:00 97.1 F L 124 H 23 H 143/77 H 97 10/09/17 14:41 105 H 22 H 95 10/09/17 13:31 121 H 20 93 L 10/09/17 11:15 97.5 F L 126 H 20 119/65 92 L 10/09/17 10:05 111 H 20 95 10/09/17 08:21 97.3 F L 109 H 20 111/74 98 10/09/17 06:28 95 Admit Weight 108 lb 14.4 oz Weight 110 lb 10/08/17 10/09/17 10/10/17 06:59 06:59 06:59 Intake Total 2564.5 980 Output Total 1600 1750 Balance 964.5 -770 - Physical Examination General/Neuro: alert & oriented x3, NAD Neck: no JVD present Lungs: unlabored respirations Heart: other: (Irreg) Abdomen: other: (Mild distention, ) Extremities: other: (no edema) - Telemetry Telemetry Rhythm: Afib HR 80's. - Labs Result Diagrams: 10/09/17 05:54 10/09/17 15:23 - Assessment/Plan 1. Paroxysmal afib 2. Neutropenia, resolved. 3. Neutropenic fever. 4. Anemia 5. Ovarian cancer. 6. Hypokalemia 7. Severe . 8. Acute decompensated heart failure, diastolic, likely from severe . PLAN: - Switch amio to PO. - IV lasix today, likely switch to PO daily tomorrow. - Continue to hold IV fluids.
[2017-10-10] MEDS: ALPRAZolam 0.5 MG TAB PO PRN ×2 (01:26→15:31)
[2017-10-10] MEDS: Levothyroxine Sodium 88 MCG TAB PO SCH (05:24)
[2017-10-10 05:45] LABS: Anion Gap 10 mmol/L (10-20); BUN (Urea Nitrogen) 22 mg/dL (9.8-20.1); Calc. Creatinine Clearance 33 mL/min (70-130); Calcium 9.1 mg/dL (7.8-10.44); Carbon Dioxide 21 mmol/L (23-31); Chloride 100 mmol/L (98-107); Estimated GFR-MDRD 49; Magnesium 1.9 mg/dL (1.6-2.6)
[2017-10-10 06:05] LABS: Band 29 % (5-11); Hematocrit 25.9 % (36.0-47.0); Mean Platelet Volume 6.1 fL (7.4-10.4); Metamyelocyte 2 % (0-0); Myelocyte 6 % (0-0); Neutrophil 53 % (42-75); Nucleated RBC 2 % (0); Red Blood Cell (RBC) Count 2.92 mill/uL (4.20-5.40); Toxic Granulation MODERATE; White Blood Cell (WBC) Count 22.7 thou/uL (4.8-10.8)
[2017-10-10] MEDS: Saccharomyces boulardii 250 MG CAP PO SCH (08:34)
[2017-10-10] MEDS: Famotidine 20 MG TAB PO SCH ×3 (08:34→22:26)
[2017-10-10] MEDS: Escitalopram Oxalate 10 mg Tablet PO SCH (08:34)
[2017-10-10] MEDS: Aspirin 81 mg Enteric Coated Tablet PO SCH (08:34)
--- NOTE | 2017-10-10 11:44 | PDOC.PN ---
- Subjective Encounter Start Date: 10/10/17 Encounter Start Time: 09:45 getting called several times daily for intermittent episodes of SOB. Pt has increase HR and is anxious, seems to respond to anxiolytics. O2 levels have remained okay. Attenpted to see if there was any drainable abdominal fluid, but radiologist found none.] No f/C, no N/V. Not eating, not drinking. Will ask palliative care to see. cardiology notes reviewd. Off amio gtt now to po amio. hgb trending down, pt denies GI bleeding. WBC still climbing, following - Objective Resuscitation Status: Resuscitation Status FULL:Full Resuscitation MAR Reviewed: Yes Vital Signs & Weight: Vital Signs (12 hours) Temp Pulse Resp BP Pulse Ox 10/10/17 09:39 84 18 94 L 10/10/17 08:00 97.4 F L 20 133/63 96 10/10/17 06:45 91 20 96 10/10/17 05:01 97.8 F 114 H 103/68 10/10/17 04:25 97.8 F 114 H 18 103/68 93 L 10/10/17 02:11 85 22 H 97 Weight Admit Weight 108 lb 14.4 oz Weight 116 lb 4.8 oz I&O: 10/09/17 10/10/17 10/11/17 06:59 06:59 06:59 Intake Total 980 460 Output Total 1750 750 Balance -770 -290 Result Diagrams: 10/10/17 04:47 10/10/17 04:47 Radiology Reviewed by me: Yes EKG Reviewed by me: Yes Phys Exam - Physical Examination cachectic, chronically ill-appearing HEENT: PERRLA, moist MMs, sclera anicteric, oral pharynx no lesions Neck: no nodes, no JVD, supple, full ROM Respiratory: no wheezing, no rhonchi bibasilar crackles, poor respiratory effort Cardiovascular: RRR, no rub murmur stable, in NSR at present. Telemetry review shows that she has been in and out all night Gastrointestinal: soft, non-tender, positive bowel sounds distended, not tense, tympanitic Musculoskeletal: no edema, pulses present Neurological: non-focal, normal sensation, moves all 4 limbs Lymphatic: no nodes Psychiatric: normal affect, A&O x 3 Skin: no rash, cap refill <2 seconds Dx/Plan (1) Neutropenic fever Code(s): D70.9 - NEUTROPENIA, UNSPECIFIED; R50.81 - FEVER PRESENTING WITH CONDITIONS CLASSIFIED ELSEWHERE Status: Resolved Comment: Up to 22k today (2) Chemotherapy induced neutropenia Code(s): D70.1 - AGRANULOCYTOSIS SECONDARY TO CANCER CHEMOTHERAPY; T45.1X5A - ADVERSE EFFECT OF ANTINEOPLASTIC AND IMMUNOSUP DRUGS, INIT Status: Resolved (3) Salmonella Code(s): A02.9 - SALMONELLA INFECTION, UNSPECIFIED Status: Acute Comment: transition to Cipro po (4) Infectious diarrhea in adult patient Code(s): A09 - INFECTIOUS GASTROENTERITIS AND COLITIS, UNSPECIFIED Status: Acute Comment: Salmonella postive on stool. Streamline Rx. few more days is all that is left (5) HTN (hypertension) Code(s): I10 - ESSENTIAL (PRIMARY) HYPERTENSION Status: Chronic Qualifiers: Hypertension type: essential hypertension Qualified Code(s): I10 - Essential (primary) hypertension (6) Hypokalemia Code(s): E87.6 - HYPOKALEMIA Status: Resolved (7) Hypomagnesemia Code(s): E83.42 - HYPOMAGNESEMIA Status: Resolved (8) Paroxysmal atrial fibrillation with rapid ventricular response Code(s): I48.0 - PAROXYSMAL ATRIAL FIBRILLATION Status: Chronic Comment: amio po. follow up on cardiology recommendations (9) Anemia of chronic disease Code(s): D63.8 - ANEMIA IN OTHER CHRONIC DISEASES CLASSIFIED ELSEWHERE Status : Chronic (10) BAKARI (acute kidney injury) Code(s): N17.9 - ACUTE KIDNEY FAILURE, UNSPECIFIED Status: Resolved (11) Moderate dehydration Code(s): E86.0 - DEHYDRATION Status: Resolved (12) Moderate protein-calorie malnutrition Code(s): E44.0 - MODERATE PROTEIN-CALORIE MALNUTRITION Status: Chronic Comment: PT still not eating and now not taking ensure. I have consulted palliative care. she cannot survive without eating - Plan cont current plan of care, continue antibiotics, PT/OT, social work lecturer * .
--- NOTE | 2017-10-10 13:02 | PDOC.CTH ---
Cardiology Progress Note - Subjective She is still SOB. She feels better with IV lasix and then she gets IV meds and feels SOB again. She goes in and out of afib. - Objective Vital Signs Temp Pulse Resp BP Pulse Ox 10/10/17 11:30 97.8 F 115 H 14 106/60 98 10/10/17 09:39 84 18 94 L 10/10/17 07:40 97.7 F 130 H 20 168/88 H 95 10/10/17 06:45 91 20 96 10/10/17 05:01 97.8 F 114 H 103/68 10/10/17 04:25 97.8 F 114 H 18 103/68 93 L 10/10/17 02:11 85 22 H 97 Admit Weight 108 lb 14.4 oz Weight 116 lb 4.8 oz 10/09/17 10/10/17 10/11/17 06:59 06:59 06:59 Intake Total 980 460 Output Total 1750 750 Balance -770 -290 - Physical Examination General/Neuro: alert & oriented x3, NAD Neck: no JVD present Lungs: other: (Crackles at bases.) Heart: RRR Abdomen: other: (mild distention, no pain) Extremities: + edema B (none) - Telemetry Telemetry Rhythm: NSR, Afib - Labs Result Diagrams: 10/10/17 04:47 10/10/17 04:47 - Assessment/Plan 1. Paroxysmal afib 2. Neutropenia, resolved. 3. Neutropenic fever. 4. Anemia 5. Ovarian cancer. 6. Hypokalemia 7. Severe . 8. Acute decompensated heart failure, diastolic, likely from severe . PLAN: - Continue PO amio. - Continue IV lasix today. - Aspirin alone for DVT prophylaxis as she continues to have worsening anemia even after her transfusion. - Agree with palliative care consult.
[2017-10-10 13:38] VITALS: BMI 21.2
[2017-10-10] MEDS: Furosemide 40 MG/4 ML VIAL SLOW IVP SCH (14:53)
[2017-10-10] MEDS ORDERED: Albuterol Sulfate 2.5 mg/3 ml Neb NEB PRN (16:04)
[2017-10-10 16:23] LABS: Oxyhemoglobin 86.7 % (94.0-97.0); Sodium 128 mmol/L (135-148)
[2017-10-10 16:26] LABS: Mode 4L/M NASAL CANNULA
[2017-10-10] MEDS: Nitroglycerin 2% Ointment 1 INCH/1 GM Packet TOP SCH (22:13)
[2017-10-10] MEDS: Ciprofloxacin 500 MG TAB PO SCH ×2 (22:14→22:26)
[2017-10-10] MEDS: Morphine 4 MG/ML VIAL SLOW IVP PRN (23:05)
[2017-10-10] MEDS ORDERED: Diltiazem HCl 125 MG, Admixture Fee 1 EACH in Sodium Chloride 0.9% 100 ML IVPB SCH (23:15)
[2017-10-11] MEDS: Levothyroxine Sodium 88 MCG TAB PO SCH (05:07)
[2017-10-11] MEDS: Nitroglycerin 2% Ointment 1 INCH/1 GM Packet TOP SCH ×2 (05:08→12:35)
[2017-10-11 05:18] LABS: Anion Gap 13 mmol/L (10-20); BUN (Urea Nitrogen) 26 mg/dL (9.8-20.1); Calc. Creatinine Clearance 32 mL/min (70-130); Calcium 9.9 mg/dL (7.8-10.44); Carbon Dioxide 25 mmol/L (23-31); Chloride 97 mmol/L (98-107); Estimated GFR-MDRD 45; Magnesium 1.7 mg/dL (1.6-2.6)
[2017-10-11] MEDS: Furosemide 40 MG/4 ML VIAL SLOW IVP SCH ×2 (05:49→12:34)
[2017-10-11 05:55] LABS: Band 30 % (5-11); Hematocrit 26.4 % (36.0-47.0); Mean Platelet Volume 6.1 fL (7.4-10.4); Metamyelocyte 3 % (0-0); Myelocyte 3 % (0-0); Neutrophil 55 % (42-75); Red Blood Cell (RBC) Count 2.95 mill/uL (4.20-5.40); White Blood Cell (WBC) Count 25.2 thou/uL (4.8-10.8)
[2017-10-11] MEDS: Ciprofloxacin 500 MG TAB PO SCH (08:44)
[2017-10-11] MEDS: Famotidine 20 MG TAB PO SCH (08:44)
[2017-10-11] MEDS: Escitalopram Oxalate 10 mg Tablet PO SCH (08:44)
[2017-10-11] MEDS: Aspirin 81 mg Enteric Coated Tablet PO SCH (08:44)
[2017-10-11] MEDS: Saccharomyces boulardii 250 MG CAP PO SCH (08:45)
--- NOTE | 2017-10-11 11:24 | PDOC.PN ---
- Subjective Encounter Start Date: 10/11/17 Encounter Start Time: 08:30 pt trasnferred by me to IMCU yesterday for repeated compalints of SOB and desaturations. Pt still adamant then about being a full code. On arrival, hursing discussed with pt and fmaily, pt decided on DNR status, and are wanting hospice to evaluation. PC nurse informed and involved in the process Pt very somnolent, but we are now transitioning to comfort measures No F/C, no N/V/D/C, no CP, no GI bleeding - Objective Resuscitation Status: Resuscitation Status DNR:Do Not Resuscitate MAR Reviewed: Yes Vital Signs & Weight: Vital Signs (12 hours) Temp Pulse Resp BP Pulse Ox 10/11/17 11:04 122 H 18 90 L 10/11/17 07:45 91 L 10/11/17 07:43 120 H 14 94 L 10/11/17 07:13 97.1 F L 97 12 115/57 L 97 10/11/17 04:00 99 16 102/65 99 10/11/17 03:20 97 10/11/17 02:17 68 9 L 100 10/11/17 02:14 100 9 L 70 L 10/11/17 00:00 96.6 F L 122 H 13 88/57 L 98 Weight Admit Weight 108 lb 14.4 oz Weight 116 lb 8 oz I&O: 10/10/17 10/11/17 10/12/17 06:59 06:59 06:59 Intake Total 460 Output Total 750 450 Balance -290 -450 Result Diagrams: 10/11/17 04:35 10/11/17 04:35 Radiology Reviewed by me: Yes EKG Reviewed by me: Yes Phys Exam - Physical Examination ill appearing HEENT: PERRLA, moist MMs, sclera anicteric, oral pharynx no lesions Neck: no nodes, no JVD, supple clear BS, decreased sounds to left lateral and dry cleaning supervisor base. No wheezes, slightly prolonged expiration tachy, regular at present. murmur stable Gastrointestinal: soft, non-tender, positive bowel sounds distended, not tense Musculoskeletal: no edema Neurological: non-focal, moves all 4 limbs Lymphatic: no nodes Deviation from normal: decreased LOC, arousable, Ox3 Skin: no rash, normal turgor, cap refill <2 seconds Dx/Plan (1) Neutropenic fever Code(s): D70.9 - NEUTROPENIA, UNSPECIFIED; R50.81 - FEVER PRESENTING WITH CONDITIONS CLASSIFIED ELSEWHERE Status: Resolved Comment: Up to 25k today. post GCSF a few days ago (2) HTN (hypertension) Code(s): I10 - ESSENTIAL (PRIMARY) HYPERTENSION Status: Chronic Qualifiers: Hypertension type: essential hypertension Qualified Code(s): I10 - Essential (primary) hypertension Comment: BP normal to low. Nitropaste stopped due to hypotension. (3) Hypokalemia Code(s): E87.6 - HYPOKALEMIA Status: Resolved Comment: replaced adequately for now (4) Hypomagnesemia Code(s): E83.42 - HYPOMAGNESEMIA Status: Resolved (5) Paroxysmal atrial fibrillation with rapid ventricular response Code(s): I48.0 - PAROXYSMAL ATRIAL FIBRILLATION Status: Chronic Comment: amio po. follow up on cardiology recommendations (6) Anemia of chronic disease Code(s): D63.8 - ANEMIA IN OTHER CHRONIC DISEASES CLASSIFIED ELSEWHERE Status : Chronic (7) BAKARI (acute kidney injury) Code(s): N17.9 - ACUTE KIDNEY FAILURE, UNSPECIFIED Status: Resolved (8) Moderate dehydration Code(s): E86.0 - DEHYDRATION Status: Resolved (9) Moderate protein-calorie malnutrition Code(s): E44.0 - MODERATE PROTEIN-CALORIE MALNUTRITION Status: Chronic Comment: PT still not eating and now not taking ensure. I have consulted palliative care. she cannot survive without eating (10) Salmonella Code(s): A02.9 - SALMONELLA INFECTION, UNSPECIFIED Status: Resolved Comment : completed abx course (11) Chemotherapy induced neutropenia Code(s): D70.1 - AGRANULOCYTOSIS SECONDARY TO CANCER CHEMOTHERAPY; T45.1X5A - ADVERSE EFFECT OF ANTINEOPLASTIC AND IMMUNOSUP DRUGS, INIT Status: Resolved (12) Infectious diarrhea in adult patient Code(s): A09 - INFECTIOUS GASTROENTERITIS AND COLITIS, UNSPECIFIED Status: Resolved Comment: Salmonella postive on stool. Streamline Rx. few more days is all that is left - Plan plan discussed w/ family, social work faculty member, respiratory therapy * .
[2017-10-11] MEDS: Morphine 4 MG/ML VIAL SLOW IVP PRN (12:15)
[2017-10-11] MEDS: Ondansetron HCl/PF 4 MG/2 ML Vial IVP PRN (12:35)
[2017-10-11 13:55] VITALS: BP 111/65; TEMP 97.5
--- NOTE | 2017-10-11 14:56 | DIS ---
DATE OF ADMISSION: 10/04/2017 DATE OF : 10/11/2017 at 1342. CAUSE OF : 1. Cardiac arrest, immediate. 2. Acute on chronic hypoxemic and hypercapnic respiratory failure. 3. Severe/critical aortic stenosis. 4. Acute on chronic systolic congestive heart failure. 5. Metastatic ovarian cancer. CONSULTATIONS: 1. Cardiology, Dr. Hernán Cui. 2. Oncology, Waleskanereida Galvez. PROCEDURES: Attempted abdominal ultrasound with paracentesis, not performed due to lack of fluid. HISTORY AND PHYSICAL: Ms. Sher is an 81-year-old female with history of ovarian cancer, recently pritchard d chemotherapy, developed fever and diarrhea on the protracted basis, presented to the emergency depa rtment for evaluation. She was subsequently admitted to our service for neutropenic fever. HOSPITAL COURSE: The patient was seen and examined by Dr. Galvan. She was placed on antibiotics. On cology and Cardiology were consulted due to comorbidities. Oncology placed her on Imodium, antibioti cs were continued. Dr. Cui put her on diuretics and Cardizem drip for her atrial fibrillation and heart failure. The patient slowly improved from 10/05/2017 until 10/08/2017. Her atrial fibrillation became under c ontrol and she was converted eventually with amiodarone and was in and out of sinus rhythm. She was on p.o. amiodarone. Her blood pressure remained stable. Breathing had improved, however, on 017, she was complaining of increased shortness of breath. Chest x-ray was unchanged, Cardiology fel t she was having a symptomatic heart failure. She was given IV Lasix for removal of fluids and seeme d to improve. She was given p.r.n. Xanax for what appeared to be anxiety. From 10/08/2017 to 2016, she remained fairly stable and arrangements made for outpatient transfer. On 10/10/2017, multi ple times of the day, she complained of shortness of breath. Repeated evaluation showed her lungs to be without new abnormalities, good air movement and good oxygen levels. She was transferred to [facility] overnight on 10/10/2017 for closer monitoring and p.r.n. BiPAP. Overnight 10/10/2017 to 10/11/2017, she refused to wear the BiPAP. She taken the mask off and become hypersomnolent and unresponsive, a nd the BiPAP mask be put back on. She would improve, wake up, and take the mask off again. This morning on evaluation, she was hypersomnolent and the visit was arousable and oriented x3. I ta lked about getting a chest x-ray and ABG, and after I left the family and the patient called the nurs es in there and changed her code status DNR and requested comfort care only. The geriatric case manager was consulted, made arrangements for inpatient hospice and orders were written. Minutes later, the patient went into respiratory arrest and stopped breathing and . She was evaluated by the nurses and found to be pulseless, apneic, and unresponsive. I was called in , 3 minutes later I arrived on the floor and I confirmed that she had no corneal reflex, no gag refle x, no spontaneous respirations, no palpable pulse, and no heart tones Time of called by the nurse at 1342 was confirmed. DISPOSITION: The patient's family at bedside. They gave the name of halfway and they will be c ontacted to collect the body. Next of kin will be notified.
== END 2017-10-11 14:53 | disposition expired | DRG 808 ==
LOC: ERS 17:33 → T4-B 19:02 → 2NO 10-05 02:06 → IMCU/EMU 10-10 18:12
PROVIDERS: ADMIT Internal Medicine; ATTEND Internal Medicine
PROC: 30233N1 Transfusion of Nonautologous Red Blood Cells into Peripheral Vein, Percutaneous Approach (ICD-10-PCS; 2017-10-07)
PROC: 5A09357 Assistance with Respiratory Ventilation, Less than 24 Consecutive Hours, Continuous Positive Airway Pressure (ICD-10-PCS; principal; 2017-10-10)
DX: D70.1 Agranulocytosis secondary to cancer chemotherapy (principal); J18.9 Pneumonia, unspecified organism; J96.21 Acute and chronic respiratory failure with hypoxia; N17.9 Acute kidney failure, unspecified; I50.23 Acute on chronic systolic (congestive) heart failure; E44.0 Moderate protein-calorie malnutrition; C56.9 Malignant neoplasm of unspecified ovary; E87.1 Hypo-osmolality and hyponatremia; I13.0 Hypertensive heart and chronic kidney disease with heart failure and stage 1 through stage 4 chronic kidney disease, or unspecified chronic kidney disease; A02.9 Salmonella infection, unspecified; J96.22 Acute and chronic respiratory failure with hypercapnia; I50.31 Acute diastolic (congestive) heart failure; D69.6 Thrombocytopenia, unspecified; E87.70 Fluid overload, unspecified; N18.3 Chronic kidney disease, stage 3 (moderate); E83.42 Hypomagnesemia; E86.0 Dehydration; E03.9 Hypothyroidism, unspecified; E78.5 Hyperlipidemia, unspecified; R50.81 Fever presenting with conditions classified elsewhere; Z92.21 Personal history of antineoplastic chemotherapy; K21.9 Gastro-esophageal reflux disease without esophagitis; Z91.040 Latex allergy status; E87.6 Hypokalemia; Z68.21 Body mass index [BMI] 21.0-21.9, adult; Y95 Nosocomial condition; I46.9 Cardiac arrest, cause unspecified; I35.0 Nonrheumatic aortic (valve) stenosis; Z66 Do not resuscitate; Z51.5 Encounter for palliative care; I48.0 Paroxysmal atrial fibrillation; D63.8 Anemia in other chronic diseases classified elsewhere; T45.1X5A Adverse effect of antineoplastic and immunosuppressive drugs, initial encounter
CPT/HCPCS: 36415; 36430; 71010; 76705; 80048; 80053; 80069; 81003; 82805; 83630; 83735; 83880; 84100; 85007; 85025; 85027; 85610; 85730; 86850; 86900; 86901; 87015; 87045; 87046; 87077; 87086; 87186; 87324; 87328; 87329; 87449; 87899; 93005; 93010; 93306; 94640; 94660; 94760; 96374; 96375; A4216; A4353; G8978-GP-CM; G8979-GP-CK; J0282; J0692; J0744; J1160; J1447; J1940; J2270; J2405; J3370; J3475; J7050; J7070; J7611; J7620; P9016